=== PATIENT | female | born 1970 | race Caucasian/White ===

== ENCOUNTER 2016-12-12 06:43 | Emergency (ER) | payer MEDICAID, OTHER ==
[2016-12-12 06:50] VITALS: RESP 18
[2016-12-12] MEDS ORDERED: IPRATROPIUM/ALBUTEROL 3 ML DEYVIAL IH ONE (07:30)
--- NOTE | 2016-12-12 07:51 | EDPHY ---
HPI/HX/ROS/PE/MDM Narrative: CHIEF COMPLAINT: "I keep waking up in the middle of the night not able to catch my breath" HPI: The patient is a 46 y/o female with a history of asthma complaining of dyspnea that has woken her from sleep for the past few nights. She notes she has been out of her albuterol for about 3 days and this is concurrent with the onset of her symptoms. She's also had a non-productive cough for a month and went to her PCP last week for this. She was prescribed a course of azithromycin and has since completed this with no improvement in her symptoms. She did not have a chest x-ray at that visit. She is a former smoker, but denies other pertinent medical history. No associated fever. REVIEW OF SYSTEMS: Aside from elements discussed in the HPI, a comprehensive 10-point review of systems was reviewed and is negative. PMH: asthma SOCIAL HISTORY: Former smoker. 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 ENT:Eyes are normal to inspection. ENT inspection normal. Neck: Normal inspection. Full range of motion. Respiratory:No respiratory distress. Breath sounds have inspiratory and expiratory wheezes bilaterally. Cardiovascular: Regular rate and rhythm. Strong peripheral pulses. Normal cap refill. Abdomen:The abdomen is nontender to palpation. There are no peritoneal signs. Back: Normal to inspection. No tenderness to palpation. Skin: Normal color. No rash. Warm and dry. Extremities: Normal appearance. Full range of motion. Neuro: Oriented x3. Normal motor function. Normal sensory function. ED Course: This is a 46 y/o female who is a former smoker and has a history of asthma that presents with a few-day history of nocturnal dyspnea since running out of her albuterol. She has bilateral inspiratory and expiratory wheezes, but otherwise has an unremarkable exam. Her symptoms are consistent with bronchitis or an exacerbation of her asthma. Plan for chest x-ray and duo neb here. Chest x-ray shows possible bronchitis. Reassessed patient and discussed findings. Her wheezing has improved. She will be discharged home with scripts for albuterol and prednisone and referral to her PCP or [employer] [facility] [employer] for follow up. Return precautions discussed. She is comfortable with this plan. MDM: This patient presents with signs and symptoms of asthma exacerbation, now much relieved after nebulizer. CXR does not suggest PNA and there are no findings to support CHF or PE. - Data Points Imaging: I viewed and interpreted images myself Medications Given: Discontinued Medications Albuterol/Ipratropium (Duoneb) 3 ml IH EDNOW ONE Stop: 12/12/16 07:31 Last Admin: 12/12/16 07:43 Dose: 3 ml General Time Seen by Provider: 12/12/16 06:59 Initial Vital Signs: Initial Vital Signs Heart Rate 89 12/12/16 06:44 Respiratory Rate 18 12/12/16 06:44 Blood Pressure 120/83 H 12/12/16 06:44 O2 Sat (%) 90 L 12/12/16 06:44 O2 Delivery Mode Room Air Allergies/Adverse Reactions: No Known Allergies Allergy (Unverified 04/02/12 12:07) Home Medications: Medication Instructions Recorded ALBUTEROL SULFATE 12/12/16 Albuterol [Proventil Inhaler HFA 1 - 2 puffs IH Q4PRN PRN #1 mdi 12/12/16 (*)] predniSONE 60 mg PO DAILY 5 Days tab 12/12/16 Departure - Departure Disposition: Home, Routine, Self-Care Clinical Impression: Bronchitis, Asthma exacerbation Condition: Good Instructions: Albuterol (By breathing), Prednisone (By mouth), Acute Bronchitis (ED), Wheezing (ED) Additional Instructions: 1. Use albuterol inhaler as prescribed for cough and shortness of breath. 2. Take prednisone as prescribed. 3. Take Tylenol or ibuprofen as directed on the packaging if needed for fever or pain. 4. Follow up with your primary care provider or [employer] [facility] [employer] for unimproved symptoms over the next few days. 5. Return to the ED for worsening of condition. Referrals: Viloet Rosales MD [Primary Care Provider] - As per Instructions Prescriptions: Albuterol [Proventil Inhaler HFA (*)] 1 - 2 puffs IH Q4PRN PRN #1 mdi PRN Reason: Sob/Dyspnea predniSONE 60 mg PO DAILY 5 Days tab Report Scribed for: Yovany Omalley Report Scribed by: Sydnie Sun Date of Report: 12/12/16 Time of Report: 07:13 Physician Review and Approval Statement: Portions of this note were transcribed by an ED scribe. I personally performed the history, physical exam, and medical decision making; and confirm the accuracy of the information in the transcribed note.
[2016-12-12 08:37] VITALS: BP 131/76; PULSE 91; TEMP 98.2; O2SAT 92
== END 2016-12-12 08:37 | disposition home or self-care (01) ==
DX: J45.901 Unspecified asthma with (acute) exacerbation (principal); Z87.891 Personal history of nicotine dependence

== ENCOUNTER 2017-08-01 23:16 | Observation (INO) | payer MEDICAID ==
[2017-08-01] MEDS ORDERED: IPRATROPIUM/ALBUTEROL 3 ML DEYVIAL ONE (23:22)
--- NOTE | 2017-08-01 23:24 | EDPHY ---
H & P Stated Complaint: SOB USING MDI MORE, NOT HELPING Time Seen by Provider: 08/01/17 23:24 HPI/ROS: HPI CHIEF COMPLAINT: Asthma HISTORY OF PRESENT ILLNESS: Patient is a very pleasant 47-year-old female, she has a history of asthma recently over the past week she has had worsening shortness of breath and cough. She reports worsening wheezing. Denies any chest pain. She has been using her albuterol inhaler at home without much relief. She presented to the emergency room by private vehicle she had a room air saturation of 85% upon arrival. No acute distress. Does state she has increasing productive cough with productive sputum yellow in nature but no fever. Denies chest pain or pleuritic pain denies hemoptysis. She has never been intubated for asthma but she has been hospitalized. She does have a smoking history but currently does not smoke. Past Medical History: Asthma Past Surgical History: No recent surgery Social History: Denies the use of tobacco alcohol or drugs. Family History: Noncontributory ROS REVIEW OF SYSTEMS: A comprehensive 10 point review of systems is otherwise negative aside from elements mentioned in the history of present illness. Exam Constitutional triage nursing summary reviewed, vital signs reviewed, awake/ alert. Eyes normal conjunctivae and sclera, EOMI, PERRLA. HENT normal inspection, atraumatic, moist mucus membranes, no epistaxis, neck supple/ no meningismus, no raccoon eyes. Respiratory faint wheezing bilaterally, bronchitic sounding cough on exam Cardiovascular rate normal, regular rhythm, no murmur, no edema, distal pulses normal. Gastrointestinal soft, non-tender, no rebound, no guarding, normal bowel sounds, no distension, no pulsatile mass. Genitourinary no CVA tenderness. Musculoskeletal no midline vertebral tenderness, full range of motion, no calf swelling, no tenderness of extremities, no meningismus, good pulses, neurovascularly intact. Skin pink, warm, & dry, no rash, skin atraumatic. Neurologic awake, alert and oriented x 3, AAOx3, moves all 4 extremities equally, motor intact, sensory intact, CN II-XII intact, normal cerebellar, normal vision, normal speech. Psychiatric normal mood/affect. Heme/Lymph/Immune no lymphadenopathy. Differential Diagnosis: Includes but is not limited to in a particular order acute asthma, reactive airway disease, pneumonia, pneumothorax Medical Decision Making: Chest x-ray, DuoNeb breathing treatment oral steroids prednisone 60 mg p.o.. Re-evaluate. Re-evaluation: 1226: I did re-evaluate the patient this time she did received 2 DuoNeb breathing treatments here. She continues to have wheezing but is much improved. Chest x-ray reviewed shows airway disease but no focal pneumonia. She did receive prednisone 60 mg p.o. Here. Will re-evaluate her shortly she may need continuous neb. 0108: Re-evaluation at this time the patient continues to have wheezing. Room air saturation 87-88%. Will give a continuous neb and IV Mag IV fluid bolus. 0147: Patient currently getting continuous neb. Still wheezing. Good air movement. No distress. Plan for patient admit to the hospital for acute asthma. She will need time with IV magnesium p.o. Prednisone will need to take affect with time, IV fluids, and pulmonary care. Spoke with the hospitalist service Dr. Felipe agrees to admit. Source: Patient - Personal History LMP (Females 10-55): 22-28 Days Ago Current Tetanus/Diphtheria Vaccine: Yes Current Tetanus Diphtheria and Acellular Pertussis (TDAP): Yes - Medical/Surgical History Hx Asthma: Yes Hx Chronic Respiratory Disease: No Hx Diabetes: No Hx Cardiac Disease: No Hx Renal Disease: No Hx Cirrhosis: No Hx Alcoholism: No Hx HIV/AIDS: No Hx Splenectomy or Spleen Trauma: No Other PMH: asthma - Social History Smoking Status: Former smoker Constitutional: Initial Vital Signs Temperature (C) 36.9 C 08/01/17 23:17 Heart Rate 85 08/01/17 23:17 Respiratory Rate 18 08/01/17 23:17 Blood Pressure 116/83 H 08/01/17 23:17 O2 Sat (%) 103 H 08/01/17 23:17 O2 Delivery Mode Nasal Cannula O2 (L/minute) 2 Allergies/Adverse Reactions: No Known Allergies Allergy (Unverified 08/01/17 23:20) Home Medications: Medication Instructions Recorded ALBUTEROL SULFATE 12/12/16 Albuterol [Proventil Inhaler HFA 1 - 2 puffs IH Q4PRN PRN #1 mdi 12/12/16 (*)] Albuterol Sulfate [Proair Hfa] 8.5 gm IH 08/01/17 Albuterol [Proventil Inhaler HFA 1 - 2 puffs IH Q4H #1 mdi 08/01/17 (*)] predniSONE 60 mg PO DAILY #15 tab 08/01/17 Medical Decision Making - Diagnostics Imaging Results: Imaging Impressions Chest X-Ray 08/01/17 23:27 Impression: 1. Bronchitis/airways disease 2. No definite pneumonia. - Data Points Laboratory Results: Laboratory Results 08/02/17 01:26 08/02/17 08/02/17 01:26 01:26 WBC 11.26 10^3/uL H 10^3/uL (3.80-9.50) RBC 5.14 10^6/uL 10^6/uL (4.18-5.33) Hgb 16.2 g/dL g/dL (12.6-16.3) Hct 46.4 % % (38.0-47.0) MCV 90.3 fL fL (81.5-99.8) MCH 31.5 pg pg (27.9-34.1) MCHC 34.9 g/dL g/dL (32.4-36.7) RDW 12.7 % % (11.5-15.2) Plt Count 212 10^3/uL 10^3/uL (150-400) MPV 9.9 fL fL (8.7-11.7) Neut % (Auto) 57.9 % % (39.3-74.2) Lymph % (Auto) 24.5 % % (15.0-45.0) Ray % (Auto) 10.9 % % (4.5-13.0) Eos % (Auto) 6.0 % % (0.6-7.6) Baso % (Auto) 0.4 % % (0.3-1.7) Nucleat RBC Rel Count 0.0 % % (0.0-0.2) Absolute Neuts (auto) 6.53 10^3/uL H 10^3/uL (1.70-6.50) Absolute Lymphs (auto) 2.76 10^3/uL 10^3/uL (1.00-3.00) Absolute Monos (auto) 1.23 10^3/uL H 10^3/uL (0.30-0.80) Absolute Eos (auto) 0.67 10^3/uL H 10^3/uL (0.03-0.40) Absolute Basos (auto) 0.04 10^3/uL 10^3/uL (0.02-0.10) Absolute Nucleated RBC 0.00 10^3/uL 10^3/uL (0-0.01) Immature Gran % 0.3 % % (0.0-1.1) Immature Gran # 0.03 10^3/uL 10^3/uL (0.00-0.10) Sodium Pending Potassium Pending Chloride Pending Carbon Dioxide Pending Anion Gap Pending BUN Pending Creatinine Pending Estimated GFR Pending Glucose Pending Calcium Pending Medications Given: Magnesium Sulfate (Magnesium Sulf 2 Gm (Premix)) 50 mls @ 50 mls/hr IV EDNOW ONE Stop: 08/02/17 02:04 Last Admin: 08/02/17 01:31 Dose: 50 mls Discontinued Medications Albuterol (Proventil Neb) 6 ml IH EDNOW ONE Stop: 08/01/17 23:47 Last Admin: 08/01/17 23:50 Dose: 6 ml Albuterol (Proventil Neb) 10 ml IH CONT ONE Stop: 08/02/17 01:05 Last Admin: 08/02/17 01:25 Dose: 10 ml Albuterol/Ipratropium (Duoneb) 3 ml IH EDNOW ONE Stop: 08/01/17 23:28 Last Admin: 08/01/17 23:50 Dose: 3 ml Sodium Chloride (Ns) 1,000 mls @ 0 mls/hr IV ONCE ONE PRN Reason: Wide Open Stop: 08/02/17 01:06 Last Admin: 08/02/17 01:32 Dose: 1,000 mls Prednisone (Prednisone) 60 mg PO EDNOW ONE Stop: 08/01/17 23:28 Last Admin: 08/01/17 23:49 Dose: 60 mg Departure - Departure Disposition: Home, Routine, Self-Care Clinical Impression: Asthma exacerbation Qualifiers: Asthma severity: mild Asthma persistence: intermittent Qualified Code(s): J45.21 - Mild intermittent asthma with (acute) exacerbation Condition: Good Instructions: Asthma (ED) Additional Instructions: 1. Return emergency room if you have worsening symptoms includes worsening shortness of breath, fever, vomiting. 2. Albuterol inhaler 2 puffs every 4 hr as needed for shortness of breath cough and wheezing. 3. Prednisone as prescribed. Referrals: Violet Rosales MD [Primary Care Provider] - As per Instructions Prescriptions: Albuterol [Proventil Inhaler HFA (*)] 1 - 2 puffs IH Q4H #1 mdi predniSONE 60 mg PO DAILY #15 tab
[2017-08-01] MEDS ORDERED: IPRATROPIUM/ALBUTEROL 3 ML DEYVIAL IH ONE (23:27)
[2017-08-01] MEDS ORDERED: predniSONE 20 MG TAB PO ONE (23:27)
[2017-08-01] MEDS ORDERED: ALBUTEROL 3 ML DEYVIAL IH ONE (23:46)
[2017-08-02] MEDS ORDERED: ALBUTEROL 3 ML DEYVIAL IH ONE (01:04)
[2017-08-02] MEDS ORDERED: MAGNESIUM SULF 2 GM/WATER 50 ML IV ONE (01:05)
[2017-08-02] MEDS ORDERED: NS 1,000 ML IV ONE (01:05)
[2017-08-02 01:37] LABS: PLATELET COUNT 212 10^3/uL (150-400)
[2017-08-02] MEDS ORDERED: ONDANSETRON 4 MG/2 ML VIAL IVP PRN (02:01)
[2017-08-02] MEDS ORDERED: ALBUTEROL 3 ML DEYVIAL IH PRN (02:01)
[2017-08-02] MEDS ORDERED: ACETAMINOPHEN 325 MG TAB PO PRN (02:01)
[2017-08-02] MEDS ORDERED: NS 1,000 ML IV SCH (02:15)
--- NOTE | 2017-08-02 02:37 | PDGENHP ---
History and Physical - Chief Complaint Shortness of breath - History of Present Illness Source-patient provides history appears reliable. EMR was reviewed and case discussed with ED provider. HPI-pleasant 47-year-old female with past medical history significant with a asthma in use of nicotine via E cig who presents emergency department today with complaints of 1 week set worth of progressive dyspnea and hypoxia. Patient reports that in the past week she has required to use her albuterol inhaler numerous times. She has a pulse ox at home and has been noting that her oxygenation has been low into the 80s and today she came in because it was 79. Patient denies any chest pain. She has had a nonproductive cough ongoing for the last week. She denies any fevers or chills. Patient denies any rhinorrhea or sore throat. Patient reports that her triggers for her asthma include seasonal allergens and possibly the E cigarette which she converted to trying to quit tobacco use. Patient without any nausea vomiting. No recent sick contacts. History Information - Allergies/Home Medication List Allergies/Adverse Reactions: No Known Allergies Allergy (Unverified 08/01/17 23:20) Home Medications: ALBUTEROL SULFATE 12/12/16 [Last Taken Unknown] Albuterol Sulfate [Proair Hfa] 8.5 gm IH 08/01/17 [Last Taken Unknown] I have personally reviewed and updated: family history, medical history, social history, surgical history - Past Medical History asthma - Surgical History Additional surgical history: Patient with history of ectopic - Family History Additional family history: No family members with history of asthma or other lung disease. Father with history of multiple myeloma. - Social History Smoking Status: Former smoker (Quit use of cigarette. Converted to ED sick) Tobacco Use: Other (E cigarette current use) Alcohol Use: None Drug Use: None Additional social history: Cor status-full Review of Systems Review of Systems: ROS: 10pt was reviewed & negative except for what was stated in HPI & below Constitutional: Reports: no symptoms. Denies: chills, fever EENMT: Reports: no symptoms. Denies: blurred vision, nose congestion, sore throat Cardiac: Reports: no symptoms Respiratory: Reports: cough, shortness of breath, wheezing Gastrointestinal: Reports: no symptoms Genitourinary: Reports: no symptoms Muscolosketal: Reports: muscle pain (Patient reporting some spasms in her bilateral shoulders.) Skin: Reports: no symptoms Neurological: Reports: headache (Slight headache since arrival to the ED.). Denies: numbness, tingling, weakness Hematologic/Lymphatic: Reports: no symptoms Physical Exam Physical Exam: Selected Entries 08/01/17 23:17 Blood Pressure Automatic Method Heart Rate 85 Respiratory 18 Rate O2 Sat (%) 103 H Temperature (C) 36.9 C Blood Pressure 116/83 H Mean Arterial 94 Pressure (MAP) O2 Delivery Room Air Mode Temperature Oral Source Temp Pulse Resp BP Pulse Ox 36.6 C 97 20 114/72 92 08/02/17 02:27 08/02/17 02:27 08/02/17 02:27 08/02/17 02:27 08/02/17 02:27 O2 (L/minute) 6 Constitutional: no apparent distress Eyes: PERRL, anicteric sclera, EOMI, No scleral injection Ears, Nose, Mouth, Throat: moist mucous membranes, other (No nasal discharge), No poor dentition Cardiovascular: no murmur, rub, or gallop, pulses symmetric bilaterally, tachycardia, No edema Peripheral Pulses: 2+: dorsalis-pedis (R), dorsalis-pedis (L) Respiratory: expiratory wheeze (Inspiratory and expiratory wheezing appreciated in all lung ware. Coarse breath sounds.), respiratory distress (Mild to moderate increased work of breathing.), No clear to auscultation Gastrointestinal: normoactive bowel sounds Genitourinary: no bladder tenderness, No parikh in urethra Skin: warm Musculoskeletal: full muscle strength, other (Patient sits up independently. Muscle tenderness and spasm bilateral trapezius.) Neurologic: AAOx3, sensation intact bilaterally, other (Nonfocal exam.), No facial droop Psychiatric: interacting appropriately, not anxious, not encephalopathic, thought process linear Lab Data & Imaging Review 08/02/17 01:26 08/02/17 01:26 WBC 11.26 10^3/uL (3.80-9.50) H 08/02/17 01:26 RBC 5.14 10^6/uL (4.18-5.33) 08/02/17 01:26 Hgb 16.2 g/dL (12.6-16.3) 08/02/17 01:26 Hct 46.4 % (38.0-47.0) 08/02/17 01:26 MCV 90.3 fL (81.5-99.8) 08/02/17 01:26 MCH 31.5 pg (27.9-34.1) 08/02/17 01:26 MCHC 34.9 g/dL (32.4-36.7) 08/02/17 01:26 RDW 12.7 % (11.5-15.2) 08/02/17 01:26 Plt Count 212 10^3/uL (150-400) 08/02/17 01:26 MPV 9.9 fL (8.7-11.7) 08/02/17 01:26 Neut % (Auto) 57.9 % (39.3-74.2) 08/02/17 01:26 Lymph % (Auto) 24.5 % (15.0-45.0) 08/02/17 01:26 [place] % (Auto) 10.9 % (4.5-13.0) 08/02/17 01:26 Eos % (Auto) 6.0 % (0.6-7.6) 08/02/17 01:26 Baso % (Auto) 0.4 % (0.3-1.7) 08/02/17 01:26 Nucleat RBC Rel Count 0.0 % (0.0-0.2) 08/02/17 01:26 Absolute Neuts (auto) 6.53 10^3/uL (1.70-6.50) H 08/02/17 01:26 Absolute Lymphs (auto) 2.76 10^3/uL (1.00-3.00) 08/02/17 01:26 Absolute Monos (auto) 1.23 10^3/uL (0.30-0.80) H 08/02/17 01:26 Absolute Eos (auto) 0.67 10^3/uL (0.03-0.40) H 08/02/17 01:26 Absolute Basos (auto) 0.04 10^3/uL (0.02-0.10) 08/02/17 01:26 Absolute Nucleated RBC 0.00 10^3/uL (0-0.01) 08/02/17 01:26 Immature Gran % 0.3 % (0.0-1.1) 08/02/17 01:26 Immature Gran # 0.03 10^3/uL (0.00-0.10) 08/02/17 01:26 Sodium 141 mEq/L (135-145) 08/02/17 01:26 Potassium 4.0 mEq/L (3.3-5.0) 08/02/17 01:26 Chloride 108 mEq/L (97-110) 08/02/17 01:26 Anion Gap 9 mEq/L (8-16) 08/02/17 01:26 BUN 15 mg/dL (7-23) 08/02/17 01:26 Creatinine 0.8 mg/dL (0.6-1.0) 08/02/17 01:26 Estimated GFR > 60 08/02/17 01:26 Glucose 113 mg/dL (70-100) H 08/02/17 01:26 Calcium 9.4 mg/dL (8.5-10.4) 08/02/17 01:26 Imaging Review: Chest, One View Portable at 2347 hours History: dyspnea , asthma. Comparison: November 2016. Findings: Cardiac silhouette is normal in size. No pneumonia, congestive heart failure, pleural effusion, or pneumothorax. Bilateral peribronchial thickening. Impression: 1. Bronchitis/airways disease 2. No definite pneumonia. Dictated By: Gordo Kahn Assessment & Plan Assessment: Pleasant 47-year-old female with history of asthma who presents emergency department with complaints of shortness of breath. Asthma exacerbation (Acute) - patient triggers including seasonal allergens as well as use of any cigarettes. Patient previously was tobacco user and has since quit. She suspects that the E cigarette is contributing to her symptoms currently. Patient was given p.o. Prednisone and continuous nebulizer in the emergency department along with magnesium. She is reporting improvement in her symptoms but continues to remain hypoxic 85-80% on room air. Will plan to add nebulized Pulmicort, Zyrtec. Chest x-ray negative for evidence of infiltrate. No antibiotics at this time. Hypoxia - patient continues to saturate 85-88% on room air. Supplemental oxygen titrate down as tolerated. Continue with treatment plan as noted above. FEN - IV fluid supplementation overnight. Electrolyte monitoring replacement if needed. Diet as tolerated. PPX-SCDs. Anticoagulation if patient should stay additional day. Otherwise will encourage early ambulation. Cor status- discussed with the patient in detail regarding resuscitation status. She does not want intubation. She does not want any form of cardiac resuscitation including shock, IV medications or compressions. Given given patient's young age and her wishes I encouraged patient to complete advanced directives unassigned medical power of compliance attorney. Have requested that patient received the advanced directive packet. Disposition-patient admitted observation status on the medical floor for observation given her continued hypoxia. She is slowly improving but continues to require additional assistance with supplemental oxygen and treatment.
[2017-08-02] MEDS ORDERED: MENTHOL/CAMPHOR 222 ML BOTTLE TP PRN (02:51)
[2017-08-02] MEDS: BUDESONIDE 0.5 MG/2 ML AMPUL.NEB IH SCH ×2 (03:06→09:50)
[2017-08-02] MEDS ORDERED: CETIRIZINE 10 MG TAB PO SCH (03:30)
[2017-08-02] MEDS ORDERED: predniSONE 20 MG TAB PO SCH ×2 (09:00→15:14)
[2017-08-02] MEDS ORDERED: ENOXAPARIN 40 MG/0.4 ML SYR SC SCH (09:00)
[2017-08-02] MEDS ORDERED: MODAFINIL 100 MG TAB PO PRN (15:14)
[2017-08-02] MEDS ORDERED: METHAMPHETAMINE HCL 5 MG PO PRN ×2 (15:14→15:30)
--- NOTE | 2017-08-02 15:15 | HOSPPROG ---
Hospitalist Progress Note Assessment/Plan: #Acute asthma exacerbation: cont nebs, pred. Still poor air movement #Tobacco use: educated on cessation #DVT: low risk. ambulatory If clinically improved, will dc in morning Subjective: SOB improved Objective: Vital Signs Temp Pulse Resp BP Pulse Ox 36.8 C 81 19 109/64 92 08/02/17 08:10 08/02/17 08:10 08/02/17 08:10 08/02/17 08:10 08/02/17 08:10 08/01/17 08/02/17 08/03/17 05:59 05:59 05:59 Intake Total 1170 Balance 1170 - Physical Exam Constitutional: no apparent distress Eyes: PERRL Ears, Nose, Mouth, Throat: moist mucous membranes Cardiovascular: regular rate and rhythym Respiratory: no respiratory distress, other (poor air movement, few expiratory wheezes) Gastrointestinal: normoactive bowel sounds Genitourinary: no bladder fullness Skin: warm Musculoskeletal: full muscle strength Neurologic: AAOx3 Psychiatric: interacting appropriately ICD10 Worksheet Patient Problems: Problems Problem Status Onset Asthma exacerbation Acute
[2017-08-02 16:01] VITALS: BP 104/68
[2017-08-02] MEDS ORDERED: BUDESONIDE/FORMOTEROL 160/4.5 60 PUFFS/MDI IH SCH (21:00)
[2017-08-03] MEDS ORDERED: TIOTROPIUM INHALER 18 MCG/DOSE 5 DOSE/MDI IH SCH (09:00)
--- NOTE | 2017-08-03 10:14 | ASMTCMCOM ---
CM Note CM Note Notes: Pt admitted with acute asthma exacerbation. Anticipate dc independently when medically stable. CM available if needs/changes. Date Signed: 08/03/2017 10:14 AM Electronically Signed By:Dian Howell RN
--- NOTE | 2017-08-03 10:17 | ASDISCHSUM ---
Discharge Information Plan Status:Home with No Needs Medically Cleared to Leave: Discharge Date:08/02/2017 06:00 PM CM D/C Disposition:Against Medical Advice ADT D/C Disposition:Against Medical Advice Projected Discharge Date:08/02/2017 06:00 PM Transportation at D/C:Friend Discharge Delay Reason: Follow-Up Date:08/02/2017 06:00 PM Discharge Slot: Final Diagnosis: Placement Information Patient Contact Information Contact Name:VERÓNICA Relationship: Address:[address] City:[place] Alternate Phone: [facility]/Zip Code:[place] [address] Email: Financial Information Financial Class:Medicaid Primary Plan Desc:[employer] Primary Plan Number:[id number] Secondary Plan Desc: Secondary Plan Number: Assessment Information [facility] CM Progress Note CM Note CM Note Notes: Pt admitted with acute asthma exacerbation. Anticipate dc independently when medically stable. CM available if needs/changes. Date Signed: 08/03/2017 10:14 AM Electronically Signed By:Dian Howell RN LACE LACE Length of stay for Answers: Less than 1 day current admission Acuity / Level of Answers: No Care: Did the patient have an inpatient admission? # of Emergency department Answers: 1-2 visits in the last 6 months Score: 1 Date Signed: 08/03/2017 10:16 AM Electronically Signed By:Dian Howell RN Intervention Information
== END 2017-08-02 18:00 | disposition left against medical advice (07) ==
LOC: F2W 08-02 02:40
PROVIDERS: ADMIT Family Medicine; ATTEND Family Medicine
DX: J45.909 Unspecified asthma, uncomplicated (principal); F17.210 Nicotine dependence, cigarettes, uncomplicated; R09.02 Hypoxemia; Z79.51 Long term (current) use of inhaled steroids
CPT/HCPCS: 71045; 96365; 99285; G0378; 80305; J3475; J7512; J7613; J7626

== ENCOUNTER → 2018-02-16 | Outpatient (CLI) | payer MEDICAID | LOC: FIMAGING 10:07 | PROVIDERS: ATTEND Internal Medicine | DX: Z12.31 Encounter for screening mammogram for malignant neoplasm of breast (principal) ==